=== PATIENT | female | born 1955 | race Caucasian/White ===

== ENCOUNTER 2017-12-08 19:26 | Inpatient (IN) ==
[2017-12-09 02:52] LABS: Troponin I 0.08 ng/mL (0.02-0.05)
[2017-12-09 03:05] LABS: CKMB Percent 1.7 % (0.0-4.0); Creatine Kinase MB 3.7 ng/mL (0.5-3.6)
--- NOTE | 2017-12-09 03:15 | P.HPIM ---
History of Present Illness Primary Care Physician: UNKNOWN History of Present Illness: 62-year-old female with history of newly diagnosed hypertension, hypothyroid, GERD and asthma presented to the ED with complaints of epigastric pain. Patient states the pain is a sharp, intermittent pain in the epigastric region that radiates to her back with no associated symptoms. On arrival she was found to have hypertension and states she was just diagnosed 3 months ago and they are trying to find the correct regimen. She was also placed on Prilosec outpatient for the last 2 months and states it started to help in the beginning but does not help anymore. She denies any shortness of breath, fever or chills. Inpatient Certification: I certify that the inpatient services were ordered in accordance with Medicare regulations governing the order. This includes certification that hospital inpatient services are reasonable and necessary and in the case of services not specified as inpatient-only under 42 CFR 419.22(n), that they are appropriately provided as inpatient services in accordance to with the 2-midnight benchmark under 43 CFR 412.3(e) Estimated Total Length of Stay (Days): 2 Plans for Post Hospital Care: Home Review of Systems All other systems reviewed negative except as stated in HPI PMFSH - History History Provided By: Patient - Medical History Medical History: Medical History (Last Updated 12/09/17 @ 03:01 by MICHELLE Le) Anemia Asthma Hypertension Hypothyroid - Surgical History Surgical History: Surgical History (Last Updated 12/09/17 @ 03:01 by MICHELLE Le) H/O: hysterectomy Hx of appendectomy Hx of cholecystectomy - Family History Family History: Family History (Last Updated 12/09/17 @ 03:02 by MICHELLE Le) Mother Ovarian cancer - Tobacco History Second Hand Smoke Exposure: Yes Tobacco Use In Past 30 Days: Yes Smoking Status: Current every day smoker Tobacco Type: Cigarettes - Alcohol History How Often Do You Have a Drink Containing Alcohol: Never - Substance Use History Substance History: No History of Abuse Medications and Allergies Active Medications: Active Medications Heparin Sodium/Dextrose (Heparin/D5w 25,000 U/250 Ml) 25,000 unit in 250 mls @ 10 mls/hr IV.CONT TITRATE PRN; Protocol PRN Reason: Per Protocol Ondansetron HCl (Zofran Inj) 4 mg IV.PUSH Q6H PRN PRN Reason: NAUSEA OR VOMITING Allergies Allergy/AdvReac Type Severity Reaction Status Date / Time ibuprofen Allergy Severe Anaphylaxis Verified 12/08/17 20:02 Home Medications Medication Instructions Recorded Confirmed Type ferrous sulfate [iron] 325 mg PO DAILY 12/08/17 12/09/17 History levothyroxine [Synthroid] 25 mcg PO DAILY 12/08/17 12/09/17 History lisinopril 20 mg PO DAILY 12/08/17 12/09/17 History montelukast [Singulair] 10 mg PO QPM 12/08/17 12/09/17 History omeprazole magnesium [Prilosec OTC] 20 mg PO DAILY 12/08/17 12/09/17 History umeclidinium-vilanterol [Anoro 1 inh INHALATION Q24H 12/08/17 12/09/17 History Ellipta] Exam Vital signs: Intake & Output 12/08/17 12/08/17 12/09/17 06:59 18:59 06:59 Weight 103.8 kg Other: Weight On Admission 103.8 kg Narrative: GENERAL: This is a well-nourished, well-developed patient, in no apparent distress. SKIN: Warm, dry, intact, no ecchymosis or open lesions EYES: Pupils equal round and reactive, no scleral edema or drainage CARDIOVASCULAR: Regular rate and rhythm without murmurs, gallops, or rubs. RESPIRATORY: Clear to auscultation. Breath sounds equal bilaterally. No wheezes , rales, or rhonchi. GASTROINTESTINAL: Abdomen soft, epigastric tenderness nondistended. Normal active bowel sounds MUSCULOSKELETAL: Extremities without clubbing, cyanosis, or edema. NEURO: Alert & Oriented x4 to person, place, time, situation. Moves all ext x4 Results - Labs CBC & Chem 7: 12/09/17 14:15 Labs: Cardiac Enzymes 12/09/17 Range/Units 02:29 Total Creatine Kinase 219 H (26-192) U/L Troponin I 0.08 H (0.02-0.05) ng/mL Caprini VTE Risk Assessment Caprini VTE Risk Assessment: Moderate/High Risk (score >= 2) Caprini Risk Assessment Model: Point Value = 1 Point Value = 2 Point Value = 3 Point Value = 5 Age 41-60 Minor surgery BMI > 25 kg/m2 Swollen legs Varicose veins or History of unexplained or recurrent spontaneous Oral contraceptives or hormone replacement Sepsis (< 1 month) Serious lung disease, including pneumonia (< 1 month) Abnormal pulmonary function Acute myocardial infarction Congestive heart failure (< 1 month) History of inflammatory bowel disease Medical patient at bed rest Age 61-74 Arthroscopic surgery Major open surgery (> 45 min) Laparoscopic surgery (> 45 min) Malignancy Confined to bed (> 72 hours) Immobilizing plaster cast Central venous access Age >= 75 History of VTE Family history of VTE Factor V Leiden Prothrombin [id number] Lupus anticoagulant Anticardiolipin antibodies Elevated serum homocysteine Heparin-induced thrombocytopenia Other congenital or acquired thrombophilia Stroke (< 1 month) Elective arthroplasty Hip, pelvis, or leg fracture Acute spinal cord injury (< 1 month) Prophylaxis Regimen: Total Risk Factor Score Risk Level Prophylaxis Regimen 0-1 Low Early ambulation 2 Moderate Order ONE of the following: *Sequential Compression Device (SCD) *Heparin 5000 units SQ BID 3-4 Higher Order ONE of the following medications: *Heparin 5000 units SQ TID *Enoxaparin/Lovenox 40 mg SQ daily (WT < 150 kg, CrCl > 30 mL/min) *Enoxaparin/Lovenox 30 mg SQ daily (WT < 150 kg, CrCl > 10-29 mL/min) *Enoxaparin/Lovenox 30 mg SQ BID (WT < 150 kg, CrCl > 30 mL/min) AND/OR *Sequential Compression Device (SCD) 5 or more Highest Order ONE of the following medications: *Heparin 5000 units SQ TID (Preferred with Epidurals) *Enoxaparin/Lovenox 40 mg SQ daily (WT < 150 kg, CrCl > 30 mL/min) *Enoxaparin/Lovenox 30 mg SQ daily (WT < 150 kg, CrCl > 10-29 mL/min) *Enoxaparin/Lovenox 30 mg SQ BID (WT < 150 kg, CrCl > 30 mL/min) AND *Sequential Compression Device (SCD) Assessment and Plan - Plan Elevated troponin, likely due to elevated BP, rule out ACS EKG reviewed and shows sinus rhythm with no ST elevation Troponin 0.08 -Serial troponin and EKGs -Heparin IV -Insult cardiology for evaluation -Lipid profile Epigastric pain, likely a gastric ulcer -Protonix IV -Consult GI for evaluation -Tobacco use counseling Hypertensive urgency -Resume home medications lisinopril, will adjust as needed -Clonidine as needed, if no improvement will start Cardene -Monitor vitals Hypothyroid, chronic -Resume home medications DVT prophylaxis: Heparin Discussed Condition With: Patient and RN H&P: Quality - VTE Deep Vein Thrombosis/Pulmonary Embolism Present on Admission: No
[2017-12-09] MEDS: Pantoprazole Inj 40 MG Vial IV.PUSH SCH ×2 (03:28→18:00)
[2017-12-09 04:26] LABS: Prothrombin Time 10.3 sec (9.8-11.6)
[2017-12-09] MEDS: Lisinopril 20 MG Tablet PO SCH (08:03)
[2017-12-09] MEDS: Ferrous Sulfate 325 MG Tablet PO SCH (08:03)
[2017-12-09 08:24] LABS: Chol/HDL Ratio 2.8 Ratio; HDL Cholesterol 67.1 mg/dL (40.0-60.0)
[2017-12-09 08:25] LABS: Troponin I 0.08 ng/mL (0.02-0.05)
[2017-12-09 08:37] LABS: CKMB Percent 1.8 % (0.0-4.0); Creatine Kinase MB 3.6 ng/mL (0.5-3.6)
[2017-12-09] MEDS: Heparin Drip 25,000 UNIT/250 ML BAG IV.CONT PRN ×2 (09:11→18:59)
[2017-12-09] MEDS ORDERED: MethylPREDNISolone Sod Succinate Inj 125 MG/2 ML Vial IV.PUSH ONE (10:30)
--- NOTE | 2017-12-09 11:34 | P.PN ---
Subjective Interval history: Follow-up non-ST elevation MN/hypertensive urgency December 09, 2017-denies any abdominal pain. Currently denies any chest pain or shortness of breath. Physical Exam Vital signs: Vital Signs 12/09/17 02:43 12/09/17 03:00 12/09/17 03:59 Temperature 98.8 F Pulse Rate 64 56 L 61 Respiratory Rate 16 Blood Pressure 172/95 H Pulse Oximetry 98 12/09/17 04:00 12/09/17 05:00 12/09/17 06:00 Temperature Pulse Rate 60 60 60 Respiratory Rate Blood Pressure Pulse Oximetry 12/09/17 06:30 12/09/17 07:00 12/09/17 08:00 Temperature 97.4 F L Pulse Rate 77 64 Respiratory Rate 18 Blood Pressure 131/72 141/96 H Pulse Oximetry 98 Intake & Output 12/08/17 12/09/17 12/09/17 18:59 06:59 18:59 Output Total 300 / 300 Balance -300 / -300 Weight 103.7 kg Output: Urine 300 / 300 Other: Date of Last Bowel Movement 12/08/17 # Bowel Movements 0 Weight On Admission 103.8 kg Narrative: GENERAL: NAD SKIN: Warm and dry. HEAD: Normocephalic. EYES: No scleral icterus. No injection or drainage. NECK: Supple, trachea midline. No JVD or lymphadenopathy. CARDIOVASCULAR: Regular rate and rhythm without murmurs, gallops, or rubs. RESPIRATORY: Breath sounds equal bilaterally. No accessory muscle use. GASTROINTESTINAL: Abdomen soft, non-tender, nondistended. MUSCULOSKELETAL: No cyanosis, or edema. BACK: Nontender without obvious deformity. No CVA tenderness. Results - Labs Laboratory Results - last 24 hr 12/09/17 12/09/17 12/09/17 02:29 03:56 07:40 PT 10.3 INR 1.0 APTT Total Creatine Kinase 219 H 200 H CK-MB (CK-2) 3.7 H 3.6 CK-MB (CK-2) % 1.7 1.8 Troponin I 0.08 H 0.08 H Triglycerides Cholesterol LDL Cholesterol, Calc HDL Cholesterol Cholesterol/HDL Ratio 12/09/17 12/09/17 07:40 07:40 PT INR APTT 35.3 H Total Creatine Kinase CK-MB (CK-2) CK-MB (CK-2) % Troponin I Triglycerides 124 Cholesterol 188 LDL Cholesterol, Calc 96 HDL Cholesterol 67.1 H Cholesterol/HDL Ratio 2.80 Assessment and Plan - Plan 62-year-old female with Non-ST elevation MN Currently on heparin drip pending evaluation from cardiology for possible left heart catheterization However elevated troponin could have been secondary to hypertensive urgency 2D echo pending, and monitor lipid profile Hypertensive urgency Resolved Continue home medications Epigastric pain Improving Hypothyroid, chronic Continue home medications DVT prophylaxis: Heparin
[2017-12-09] MEDS: Umeclindinium 62.5 MCG/Vilanterol 25 MCG Inhaler INH SCH (13:18)
[2017-12-09 14:24] LABS: Hematocrit 35.6 % (35.0-46.0); Hemoglobin 11.6 gm/dL (11.6-15.3); Mean Corpuscular HGB Conc 32.5 % (32.0-36.0); Mean Corpuscular Hemoglobin 26.1 pg (27.0-34.0); Mean Corpuscular Volume 80.4 fL (80.0-100.0); Platelet Count 231 th/mm3 (150-450); Red Blood Count 4.43 mil/mm3 (4.00-5.30); Red Cell Distribution Width 19.2 % (11.6-17.2); White Blood Count 8.1 th/mm3 (4.0-11.0)
[2017-12-09 14:44] LABS: Albumin 3.5 g/dL (3.4-5.0)
--- NOTE | 2017-12-09 15:19 | ECG ---
Date Performed: 12/09/2017 Time Performed: 02:33:16 PTAGE: 62 years EKG: Sinus rhythm Anterolateral ST-T changes may be due to myocardial ischemia Abnormal ECG Since PREVIOUS TRACING , no significant change noted PREVIOUS TRACIN12/08/2017 20.30.22 DOCTOR: Skip Cespedes Interpretating Date/Time 12/09/2017 15:17:53
--- NOTE | 2017-12-09 15:30 | MB ---
cc: Steve Spencer MD DATE: 12/09/2017 HISTORY OF PRESENT ILLNESS: This is a very pleasant 62-year-old lady with history of asthma, anemia, hypothyroidism, hypertension and tobacco use. She developed chest pressure yesterday radiating infrascapularly, currently pain free. Otherwise, denies any fevers, chills, cough, GI or bleeding, PND, orthopnea or dizziness. PAST MEDICAL HISTORY: As per history of present illness. She is status post hysterectomy, status post appendectomy, status post cholecystectomy. ALLERGIES: IBUPROFEN. POSSIBLE CONTRAST DYE. SOCIAL HISTORY: She smokes. Denies alcohol use. MEDICATIONS: In the hospital: 1. Ferrous sulfate 325 daily. 2. IV Heparin. 3. Lisinopril 20 mg daily. 4. Levothyroxine 25 mcg daily. 5. Methylprednisolone 60 mg IV x. 6. Singulair. 7. Pantoprazole 40 mg IV push. 8. Umeclidinium and Vilanterol. PHYSICAL EXAMINATION: VITAL SIGNS: Pulse 60, blood pressure 141/96, respiratory rate 18, temperature 97.4. GENERAL: She is alert and oriented x3, in no acute distress. NECK: Supple. No JVD. No bruit. CARDIOVASCULAR: S1, S2. No murmurs, rubs or gallops. LUNGS: Clear to auscultation bilaterally. ABDOMEN: Soft, nontender, nondistended with positive bowel sounds. EXTREMITIES: No lower extremity edema. LABORATORY DATA: EKG shows normal sinus rhythm with asymmetric T-wave inversion in V3, V4, V5, V6. Chest x-ray is not done. LABORATORY DATA: INR 1.0. White count 10.3, hemoglobin 12.0, hematocrit 36.9, platelet count 260. INR is 1.0. Sodium 141, potassium 3.8, chloride 106, bicarbonate 26.0, BUN 19, creatinine 1.0. LFTs normal. Troponin is 0.08. LDL 96. DIAGNOSES: 1. [id number] myocardial infarction. 2. Tobacco abuse. 3. Asthma. 4. Hypertension. DISCUSSION: Recommend left heart catheterization medically necessary due to [id number] myocardial infarction, multiple cardiac risk factors, elevated troponin, EKG suggestive of anterolateral ischemia, multiple cardiac risk factors. I have strongly advised the patient to stop smoking. We will start aspirin 162 mg daily. Continue heparin. Beta blockers were held due to reactive airway disease. Continue lisinopril for left heart catheterization on 12/10/2017. Explained to the patient that the risks of catheterization, PCI is 5-10% chance of , stroke, heart attack, bleeding, infection, need for bypass surgery, surgery, dialysis, blood transfusion, bleeding, infection, anaphylaxis and arrhythmia. I will dose the patient with 60 mg of IV Solu-Medrol now and at 7 a.m. 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 I discussed this in detail with the patient and the nurse at the bedside. The patient understands and consents to proceed with the procedure. MD VINEET Louis/su , 11:56 AM , 12:03 PM
--- NOTE | 2017-12-09 16:56 | MB ---
cc: Vu Ahumada MD DATE: 12/09/2017 REASON FOR CONSULTATION: Epigastric pain. HISTORY OF PRESENT ILLNESS: This is a 62-year-old female patient who is currently in the hospital with symptoms of coronary artery disease with high troponin level. She was recently diagnosed with hypertension, hypothyroid, gastroesophageal reflux disease and asthma. She did complain of epigastric pain over the last 3 months. The pain was described as sharp and intermittent, mostly in the epigastric area, radiating to her back and no other associated symptoms like nausea, vomiting, dysphagia, heartburn or change in bowel habits. The patient denies any change in weight or appetite. When she was seen in the emergency room, she was hypertensive and her troponins showed evidence of myocardial event. The patient had previously seen her physician for this epigastric pain and was given Prilosec for treatment. The patient did improve slightly, then it came back over the last 3 months. The patient never had any endoscopic evaluation including upper endoscopy for her epigastric pain and heartburn. She never had a colonoscopy, but she was told clinically that she has recurrent diverticulitis. The patient refusing any endoscopic evaluation including upper endoscopy or lower endoscopy. REVIEW OF SYSTEMS: All 14 points element review of systems negative. PAST MEDICAL HISTORY: Hypertension, hypothyroid, gastroesophageal reflux disease, bronchial asthma. PAST SURGICAL HISTORY: Hysterectomy, appendectomy, cholecystectomy. FAMILY HISTORY: Ovarian CA. PSYCHOSOCIAL HISTORY: The patient is a smoker. No alcohol use or abuse. No IV drug abuse. MEDICATIONS: Currently on: 1. Zofran. 2. Heparin. ALLERGIES: IBUPROFEN. PHYSICAL EXAMINATION: GENERAL: The patient appeared to be comfortable, not in distress or in pain, good hydration status and nutritional status. Overweight. VITAL SIGNS: Essentially unremarkable within normal limits. HEAD AND NECK: Normocephalic, atraumatic. Pupils equal and reactive to light. NECK: Supple. CARDIOVASCULAR: No lymphadenopathy. No thyromegaly. CHEST: Clear to auscultation bilaterally. No crackles or wheezes. CARDIOVASCULAR: Regular rate and rhythm. No murmurs. ABDOMEN: Soft, nontender. No hepatosplenomegaly. No palpable masses. EXTREMITIES: Normal pulses. No edema. ABDOMEN: Soft, minimal tenderness in the epigastric area, but no rebound tenderness. No rigidity. No hepatosplenomegaly and no masses. EXTREMITIES: Normal pulses. No edema. NEUROLOGIC: Nonfocal. Cranial nerves 2-12 grossly intact. No motor or sensory deficit. SKIN: No rashes and appeared to be intact. ASSESSMENT: This is a 62-year-old female patient who is being admitted and evaluated for acute coronary event, found to have epigastric pain of 3 months' duration, partially improved on Prilosec. The patient refusing any endoscopic evaluation and never had a colonoscopy and refusing to have a colonoscopy as well. GI consulted for further evaluation. PLAN: This patient is refusing endoscopic evaluation, EGD or colonoscopy. We will check her CBC and Hemoccult testing and H. pylori stool antigen to rule out infection. We will continue PPI, to consider doubling the dose. Check right upper quadrant abdominal ultrasound to rule out biliary problems contributing to her pain. We will follow with you. Further recommendations to follow. Thank you for the consult. MD SUSAN Reynolds/rory , 12:34 PM , 12:43 PM
[2017-12-09] MEDS: Montelukast 10 MG Tablet PO SCH (18:00)
--- NOTE | 2017-12-09 18:08 | US ---
EXAM DATE: 12/09/2017 6:03 PM EDT AGE/SEX: 62 years / Female INDICATIONS: Abdominal pain. CLINICAL DATA: This is the patient's initial encounter. Patient reports that signs and symptoms have been present for 3 months and indicates a pain score of 2/10. MEDICAL/SURGICAL HISTORY: Anemia. Asthma. Hypertension. Hypothyroid. Cholecystectomy. Appe ndectomy. Hysterectomy. COMPARISON: No prior exams available for comparison. MEASUREMENTS: Liver:__ 22.9 cm. Common Bile Duct:__ 4mm. Right Kidney:__ 12.0 x 4.5 x 5.0 cm. FINDINGS: Liver: Increased echotexture without focal lesion or ductal dilation. Portal Vein: Hepatopedal flow seen in portal vein. Common Duct: No intraluminal mass or stone visualized. Gallbladder: Surgically absent. Pancreas: The visualized portions are within normal limits Right Kidney: Increased echotexture. No mass or hydronephrosis. Other: None. CONCLUSION: The liver is slightly echogenic which may be due to fatty infiltration and or hepatocellular dysfu nction. Electronically signed by: Josué Santa MD 12/09/2017 6:06 PM EDT
[2017-12-10] MEDS: Pantoprazole Inj 40 MG Vial IV.PUSH SCH (03:55)
[2017-12-10 04:17] LABS: Baso % (Auto) 0.5 % (0.0-2.0); Eos % (Auto) 0.3 % (0.0-4.0); Hematocrit 33.4 % (35.0-46.0); Hemoglobin 11.1 gm/dL (11.6-15.3); Lymph # (Auto) 1.5 th/mm3 (1.0-4.8); Lymph % (Auto) 20.2 % (9.0-44.0); Mean Corpuscular HGB Conc 33.2 % (32.0-36.0); Mean Corpuscular Hemoglobin 26.3 pg (27.0-34.0); Mean Corpuscular Volume 79.4 fL (80.0-100.0); Mean Platelet Volume 8.1 fL (7.0-11.0); Mono # (Auto) 0.4 th/mm3 (0.0-0.9); Mono % (Auto) 5.7 % (0.0-8.0); Neut # (Auto) 5.4 th/mm3 (1.8-7.7); Neut % (Auto) 73.3 % (16.0-70.0); Platelet Count 228 th/mm3 (150-450); Red Cell Distribution Width 19.6 % (11.6-17.2); White Blood Count 7.4 th/mm3 (4.0-11.0)
[2017-12-10 04:39] LABS: Calcium 8.2 mg/dL (8.5-10.1); Carbon Dioxide 28.5 meq/L (21.0-32.0); Potassium 3.7 meq/L (3.5-5.1)
[2017-12-10] MEDS: Umeclindinium 62.5 MCG/Vilanterol 25 MCG Inhaler INH SCH ×2 (06:30→08:17)
[2017-12-10] MEDS: Lisinopril 20 MG Tablet PO SCH ×2 (06:47→08:18)
[2017-12-10] MEDS: Ferrous Sulfate 325 MG Tablet PO SCH ×2 (06:47→08:17)
[2017-12-10] MEDS ORDERED: MethylPREDNISolone Sod Succinate Inj 125 MG/2 ML Vial IV.PUSH SCH (07:00)
[2017-12-10] MEDS ORDERED: Heparin/NS PF Inj 1,000 ML ONE (08:41)
[2017-12-10] MEDS ORDERED: Heparin 10,000 UNITS/10 ML Vial (for IV use) ONE (08:42)
[2017-12-10] MEDS ORDERED: fentaNYL Citrate Inj 100 MCG/2 ML Ampul ONE (08:42)
[2017-12-10] MEDS ORDERED: Famotidine PF Inj 20 MG/2 ML Vial ONE (08:53)
[2017-12-10] MEDS ORDERED: Labetalol HCl Inj 100 MG/20 ML Vial ONE (09:28)
--- NOTE | 2017-12-10 10:19 | MR ---
cc: Steve Spencer MD DATE: 12/10/2017 TITLE OF PROCEDURE: Left heart catheterization, left ventricular coronary angiography. INDICATIONS FOR PROCEDURE: Non-STEMI, coronary artery disease, hypertension, tobacco use, multiple cardiac risk factors. The patient was brought to the cardiac catheterization laboratory, prepped and draped in the usual sterile fashion. 10 mL of 1% lidocaine was used for local anesthetic. Right common femoral artery: A 4-Vietnamese sheath was placed in right common femoral artery. 4-Vietnamese JR4 and JL4 catheters used for left and right coronary angiography with the following findings: LV pressure was 210/12-16, EF 50%. The left ventricle appears to be upper limit of normal to mildly dilated fluoroscopically. Right coronary artery is dominant. There is mild disease in the proximal segment, up to 10% to 20% angiographically. The RV branch extends out to the apex. It appears to have at least mild to moderate diffuse disease in the mid to distal segment up to 50% angiographically. No focal stenosis, however. ANGIOGRAPHIC DATA: The left main coronary artery is a large vessel, 5-6 mm in diameter for a reference vessel diameter, distal tapering to about 20%. Left circumflex has mild disease in the mid AV groove, up to 10% angiographically. The first obtuse marginal vessel is a very small vessel, 0.5 mm, comes off the proximal left circumflex, has no significant disease angiographically. Second obtuse marginal vessel is a medium size vessel, reference vessel diameter 2.5 mm. No significant disease angiographically. The left circumflex vessel tapers, extends into a large distal posterolateral artery approaching the apex, 3.0 mm reference vessel diameter with no significant disease angiographically. The LAD is transapical. There is mild ostial disease up to 20% angiographically. First diagonal artery has an ostial 50 to perhaps 60% stenosis. However, I only see it in the AP cranial 36 degree angulation view. It is a medium size vessel, reference vessel diameter 2.5 mm. Second diagonal artery is a medium size vessel, 2.5 mm. No significant disease angiographically. CONCLUSION: 1. Angiographically mild to moderate 3-vessel coronary artery disease in a right dominant system as detailed above. 2. Low end normal left ventricular systolic function with upper limits of normal to mild dilatation of the left ventricle fluoroscopically, ejection fraction 50%. 3. Recommend medical management of coronary artery disease and hypertension. 4. I have strongly advised the patient to stop smoking multiple times. MD VINEET Louis/torri/goldie , 09:34 AM , 09:40 AM
--- NOTE | 2017-12-10 11:05 | P.PN ---
Subjective Interval history: Follow-up non-ST elevation [place] December 10, 2017-patient seen and examined, she underwent a clean left heart catheterization today. Patient is stable. Physical Exam Vital signs: Vital Signs 12/09/17 11:00 12/09/17 12:00 12/09/17 13:00 Temperature 98.1 F Pulse Rate 64 52 L 70 Respiratory Rate 18 Blood Pressure 177/93 H Pulse Oximetry 99 12/09/17 14:00 12/09/17 15:00 12/09/17 16:00 Temperature 99.2 F Pulse Rate 60 63 68 Respiratory Rate 21 Blood Pressure 154/90 H Pulse Oximetry 97 12/09/17 17:00 12/09/17 18:00 12/09/17 19:00 Temperature Pulse Rate 66 62 65 Respiratory Rate Blood Pressure Pulse Oximetry 12/09/17 20:00 12/09/17 21:00 12/09/17 22:00 Temperature 97 F L Pulse Rate 66 62 60 Respiratory Rate 16 Blood Pressure 162/95 H Pulse Oximetry 97 12/09/17 23:00 12/10/17 00:00 12/10/17 01:00 Temperature Pulse Rate 56 L 56 L 56 L Respiratory Rate 16 Blood Pressure 170/93 H Pulse Oximetry 95 12/10/17 02:00 12/10/17 03:00 12/10/17 04:00 Temperature Pulse Rate 52 L 61 60 Respiratory Rate 16 Blood Pressure 151/80 H Pulse Oximetry 97 12/10/17 05:00 12/10/17 06:00 12/10/17 07:00 Temperature Pulse Rate 48 L 60 56 L Respiratory Rate Blood Pressure Pulse Oximetry 12/10/17 08:00 12/10/17 10:00 Temperature 98.1 F Pulse Rate 56 L 51 L Respiratory Rate 18 Blood Pressure 177/95 H Pulse Oximetry 95 Intake & Output 12/09/17 12/10/17 12/10/17 18:59 06:59 18:59 Intake Total 1210 / 1210 240 / 240 160 / 160 Output Total 850 / 850 700 / 700 Balance 360 / 360 -460 / -460 160 / 160 Weight 103.7 kg Intake: IV 250 / 250 160 / 160 Heparin/D5W 25,000 U/250 mL 25, 250 / 250 160 / 160 000 unit In 250 ml @ Per Protocol 10 mls/hr IV.CONT TITRATE PRN Rx#:[id number] Oral 960 / 960 240 / 240 Output: Urine 850 / 850 700 / 700 Other: Date of Last Bowel Movement 12/08/17 # Bowel Movements 0 Narrative: GENERAL: NAD SKIN: Warm and dry. HEAD: Normocephalic. EYES: No scleral icterus. No injection or drainage. NECK: Supple, trachea midline. No JVD or lymphadenopathy. CARDIOVASCULAR: Regular rate and rhythm without murmurs, gallops, or rubs. RESPIRATORY: Breath sounds equal bilaterally. No accessory muscle use. GASTROINTESTINAL: Abdomen soft, non-tender, nondistended. MUSCULOSKELETAL: No cyanosis, or edema. BACK: Nontender without obvious deformity. No CVA tenderness. Results - Labs CBC & Chem 7: 12/10/17 03:42 12/10/17 03:42 Laboratory Results - last 24 hr 12/09/17 12/09/17 12/09/17 14:15 14:15 14:15 WBC 8.1 RBC 4.43 Hgb 11.6 Hct 35.6 MCV 80.4 MCH 26.1 L MCHC 32.5 RDW 19.2 H Plt Count 231 MPV 8.0 Neut % (Auto) Lymph % (Auto) [place] % (Auto) Eos % (Auto) Baso % (Auto) Neut # (Auto) Lymph # (Auto) [place] # (Auto) Eos # (Auto) Baso # (Auto) WBC Differential Differential Comment APTT 42.9 H D Sodium Potassium Chloride Carbon Dioxide Anion Gap BUN Creatinine Estimated GFR Random Glucose Calcium Total Bilirubin 0.4 Direct Bilirubin 0.1 Indirect Bilirubin 0.3 AST 11 L ALT 23 Alkaline Phosphatase 79 Total Protein 7.0 Albumin 3.5 12/09/17 12/10/17 12/10/17 20:40 03:42 03:42 WBC 7.4 RBC 4.20 Hgb 11.1 L Hct 33.4 L MCV 79.4 L MCH 26.3 L MCHC 33.2 RDW 19.6 H Plt Count 228 MPV 8.1 Neut % (Auto) 73.3 H Lymph % (Auto) 20.2 [place] % (Auto) 5.7 Eos % (Auto) 0.3 Baso % (Auto) 0.5 Neut # (Auto) 5.4 Lymph # (Auto) 1.5 [place] # (Auto) 0.4 Eos # (Auto) 0.0 Baso # (Auto) 0.0 WBC Differential . Differential Comment Auto diff final APTT 46.8 H Sodium 140 Potassium 3.7 Chloride 105 Carbon Dioxide 28.5 Anion Gap 7 BUN 17 Creatinine 0.91 Estimated GFR 63 L Random Glucose 96 Calcium 8.2 L Total Bilirubin Direct Bilirubin Indirect Bilirubin AST ALT Alkaline Phosphatase Total Protein Albumin 12/10/17 04:10 WBC RBC Hgb Hct MCV MCH MCHC RDW Plt Count MPV Neut % (Auto) Lymph % (Auto) [place] % (Auto) Eos % (Auto) Baso % (Auto) Neut # (Auto) Lymph # (Auto) [place] # (Auto) Eos # (Auto) Baso # (Auto) WBC Differential Differential Comment APTT 45.5 H Sodium Potassium Chloride Carbon Dioxide Anion Gap BUN Creatinine Estimated GFR Random Glucose Calcium Total Bilirubin Direct Bilirubin Indirect Bilirubin AST ALT Alkaline Phosphatase Total Protein Albumin - Imaging Impressions Liver Ultrasound 12/09/17 00:00 CONCLUSION: The liver is slightly echogenic which may be due to fatty infiltration and or hepatocellular dysfunction. - Procedures Clean left heart catheterization December 10, 2017 Assessment and Plan - Plan 62-year-old female with Non-ST elevation [place] Status post clean left heart catheterization December 10, 2017 Off heparin drip, continue with Coreg 3.125 mg twice daily, lisinopril, aspirin Appreciate input from cardiology 2D echo pending Hypertensive urgency Resolved Benign labile hypertension Currently on Aldactone 25 mg twice daily, Coreg, lisinopril, Norvasc 5 mg daily Epigastric pain Improving Patient was seen by GI, however refused endoscopy, colonoscopy evaluation Hypothyroid, chronic Continue home medications DVT prophylaxis: Heparin d/veto
--- NOTE | 2017-12-10 15:33 | P.PNGI ---
Subjective Interval history: Currently patient is sitting on side of the bed alert oriented Denies any nausea or vomiting but does note symptoms of reflux and some upper abdominal pain, gastric area Post cardiac cath today AYAH globin stable at 11.1. <Jordana Pinto - Last Filed: 12/10/17 15:33> Physical Exam Vital signs: Vital Signs 12/09/17 16:00 12/09/17 17:00 12/09/17 18:00 Temperature 99.2 F Pulse Rate 68 66 62 Respiratory Rate 21 Blood Pressure 154/90 H Pulse Oximetry 97 12/09/17 19:00 12/09/17 20:00 12/09/17 21:00 Temperature 97 F L Pulse Rate 65 66 62 Respiratory Rate 16 Blood Pressure 162/95 H Pulse Oximetry 97 12/09/17 22:00 12/09/17 23:00 12/10/17 00:00 Temperature Pulse Rate 60 56 L 56 L Respiratory Rate 16 Blood Pressure 170/93 H Pulse Oximetry 95 12/10/17 01:00 12/10/17 02:00 12/10/17 03:00 Temperature Pulse Rate 56 L 52 L 61 Respiratory Rate Blood Pressure Pulse Oximetry 12/10/17 04:00 12/10/17 05:00 12/10/17 06:00 Temperature Pulse Rate 60 48 L 60 Respiratory Rate 16 Blood Pressure 151/80 H Pulse Oximetry 97 12/10/17 07:00 12/10/17 08:00 12/10/17 10:00 Temperature 98.1 F Pulse Rate 56 L 56 L 51 L Respiratory Rate 18 Blood Pressure 177/95 H Pulse Oximetry 95 12/10/17 11:00 12/10/17 12:00 12/10/17 13:00 Temperature 98.0 F Pulse Rate 48 L 53 L 64 Respiratory Rate 18 Blood Pressure 152/80 H Pulse Oximetry 93 L 12/10/17 14:00 12/10/17 15:00 Temperature Pulse Rate 65 65 Respiratory Rate Blood Pressure Pulse Oximetry Intake & Output 12/09/17 12/10/17 12/10/17 18:59 06:59 18:59 Intake Total 1210 / 1210 240 / 240 160 / 160 Output Total 850 / 850 700 / 700 Balance 360 / 360 -460 / -460 160 / 160 Weight 103.7 kg Intake: IV 250 / 250 160 / 160 Heparin/D5W 25,000 U/250 mL 25, 250 / 250 160 / 160 000 unit In 250 ml @ Per Protocol 10 mls/hr IV.CONT TITRATE PRN Rx#:[id number] Oral 960 / 960 240 / 240 Output: Urine 850 / 850 700 / 700 Other: Date of Last Bowel Movement 12/08/17 # Bowel Movements 0 - Constitutional morbidly obese - Routine HEENT Exam Head: Present: normocephalic ENT: Present: mucous membranes moist - Routine Cardiovascular Exam Present: S1, S2 - Routine Abdominal Exam Present: soft (Round, obese,taut, upper abdominal pain gastric pain dull, waxes and wanes) <Jordana Pinto - Last Filed: 12/10/17 15:33> Vital signs: Vital Signs 12/10/17 00:00 12/10/17 01:00 12/10/17 02:00 Temperature Pulse Rate 56 L 56 L 52 L Respiratory Rate 16 Blood Pressure 170/93 H Pulse Oximetry 95 12/10/17 03:00 12/10/17 04:00 12/10/17 05:00 Temperature Pulse Rate 61 60 48 L Respiratory Rate 16 Blood Pressure 151/80 H Pulse Oximetry 97 12/10/17 06:00 12/10/17 07:00 12/10/17 08:00 Temperature 98.1 F Pulse Rate 60 56 L 56 L Respiratory Rate 18 Blood Pressure 177/95 H Pulse Oximetry 95 12/10/17 10:00 12/10/17 11:00 12/10/17 12:00 Temperature 98.0 F Pulse Rate 51 L 48 L 53 L Respiratory Rate 18 Blood Pressure 152/80 H Pulse Oximetry 93 L 12/10/17 13:00 12/10/17 14:00 12/10/17 15:00 Temperature Pulse Rate 64 65 65 Respiratory Rate Blood Pressure Pulse Oximetry 12/10/17 16:00 12/10/17 17:00 12/10/17 18:00 Temperature 97.6 F Pulse Rate 65 67 60 Respiratory Rate 18 Blood Pressure 135/77 Pulse Oximetry 98 Intake & Output 12/10/17 12/10/17 12/11/17 06:59 18:59 06:59 Intake Total 240 / 240 640 / 640 Output Total 700 / 700 900 / 900 Balance -460 / -460 -260 / -260 Weight 103.7 kg Intake: IV 160 / 160 Heparin/D5W 25,000 U/250 mL 25, 160 / 160 000 unit In 250 ml @ Per Protocol 10 mls/hr IV.CONT TITRATE PRN Rx#:[id number] Oral 240 / 240 480 / 480 Output: Urine 700 / 700 900 / 900 Other: Date of Last Bowel Movement 12/08/17 # Bowel Movements 0 <Vu Ahumada - Last Filed: 12/10/17 23:24> Results - Labs CBC & Chem 7: 12/10/17 03:42 12/10/17 03:42 Laboratory Results - last 24 hr 12/09/17 12/10/17 12/10/17 20:40 03:42 03:42 WBC 7.4 RBC 4.20 Hgb 11.1 L Hct 33.4 L MCV 79.4 L MCH 26.3 L MCHC 33.2 RDW 19.6 H Plt Count 228 MPV 8.1 Neut % (Auto) 73.3 H Lymph % (Auto) 20.2 [place] % (Auto) 5.7 Eos % (Auto) 0.3 Baso % (Auto) 0.5 Neut # (Auto) 5.4 Lymph # (Auto) 1.5 [place] # (Auto) 0.4 Eos # (Auto) 0.0 Baso # (Auto) 0.0 WBC Differential . Differential Comment Auto diff final APTT 46.8 H Sodium 140 Potassium 3.7 Chloride 105 Carbon Dioxide 28.5 Anion Gap 7 BUN 17 Creatinine 0.91 Estimated GFR 63 L Random Glucose 96 Calcium 8.2 L 12/10/17 04:10 WBC RBC Hgb Hct MCV MCH MCHC RDW Plt Count MPV Neut % (Auto) Lymph % (Auto) [place] % (Auto) Eos % (Auto) Baso % (Auto) Neut # (Auto) Lymph # (Auto) [place] # (Auto) Eos # (Auto) Baso # (Auto) WBC Differential Differential Comment APTT 45.5 H Sodium Potassium Chloride Carbon Dioxide Anion Gap BUN Creatinine Estimated GFR Random Glucose Calcium - Imaging Impressions Liver Ultrasound 12/09/17 00:00 CONCLUSION: The liver is slightly echogenic which may be due to fatty infiltration and or hepatocellular dysfunction. - Procedures Clean left heart catheterization December 10, 2017 <Jordana Pinto - Last Filed: 09/03/18 15:33> - Labs CBC & Chem 7: 12/10/17 03:42 12/10/17 03:42 Laboratory Results - last 24 hr 12/10/17 12/10/17 12/10/17 03:42 03:42 04:10 WBC 7.4 RBC 4.20 Hgb 11.1 L Hct 33.4 L MCV 79.4 L MCH 26.3 L MCHC 33.2 RDW 19.6 H Plt Count 228 MPV 8.1 Neut % (Auto) 73.3 H Lymph % (Auto) 20.2 [place] % (Auto) 5.7 Eos % (Auto) 0.3 Baso % (Auto) 0.5 Neut # (Auto) 5.4 Lymph # (Auto) 1.5 [place] # (Auto) 0.4 Eos # (Auto) 0.0 Baso # (Auto) 0.0 WBC Differential . Differential Comment Auto diff final APTT 45.5 H Sodium 140 Potassium 3.7 Chloride 105 Carbon Dioxide 28.5 Anion Gap 7 BUN 17 Creatinine 0.91 Estimated GFR 63 L Random Glucose 96 Calcium 8.2 L <Vu Ahumada - Last Filed: 12/10/17 23:24> Assessment and Plan (1) Abdominal pain Status: Acute Code(s): R10.9 - Unspecified abdominal pain (2) Abdominal pain decreased with position change Status: Acute Code(s): R10.9 - Unspecified abdominal pain - Plan History history ASSESSMENT: This is a 62-year-old female patient who is being admitted and evaluated for acute coronary event, found to have epigastric pain of 3 months' duration, partially improved on Prilosec. The patient refusing any endoscopic evaluation and never had a colonoscopy and refusing to have a colonoscopy as well. GI consulted for further evaluation This patient is refusing endoscopic evaluation, EGD or colonoscopy. We will check her CBC and Hemoccult testing and H. pylori stool antigen to rule out infection. We will continue PPI, to consider doubling the dose. Check right upper quadrant abdominal ultrasound to rule out biliary problems contributing to her pain. We will follow with you. Further recommendations to follow. 12/10/2017 patient is status post cardiac cath today which showed some triple- vessel disease. According to the record will be medical management. Patient continues to express some upper abdominal pain possible gastric area and does note a history of reflux disease. Abdominal ultrasound showed slightly echogenic which could be related to fatty infiltration or hepatocellular disease. Currently patient has been placed on Protonix and currently denies any epigastric pain. Patient is also a smoker and discussed supportive care for smoking abstinence. Patient notes previous CT scan done at another facility before transfer here unremarkable. Okay to follow GI on an outpatient basis and further evaluate fatty liver disease versus hepatocellular disease. Patient's plan is to discharge tomorrow. Current hemoglobin 11.7 and stable Plan Diet per attending as tolerated avoid any spicy or greasy foods Reflux precautions which includes slow eating, with hydration, no late night eating Health maintenance regimen Currently patient is okay to follow GI on an outpatient basis especially if her pain continues. Will consider further procedures such as EGD or colonoscopy on an outpatient basis. PPI p.o. twice daily Supportive care Patient was seen per myself and Dr. Ahumada, note was written on his behalf <Jordana Pinto - Last Filed: 12/10/17 15:33> (1) Abdominal pain Status: Acute Code(s): R10.9 - Unspecified abdominal pain (2) Abdominal pain decreased with position change Status: Acute Code(s): R10.9 - Unspecified abdominal pain - Attending Attestation Cath results noted, medical management for now. Will need EGD and Colonoscopy when patient agreeable. Will sign off for now, please notify us if needed. <Vu Ahumada - Last Filed: 12/10/17 23:24>
[2017-12-10] MEDS: Montelukast 10 MG Tablet PO SCH (17:39)
[2017-12-10] MEDS: Spironolactone 25 MG Tablet PO SCH (17:39)
[2017-12-11 01:50] VITALS: RESP 16
--- NOTE | 2017-12-11 05:28 | P.PNCA ---
Subjective Interval history: alert in nad Physical Exam Vital signs: Vital Signs 12/10/17 06:00 12/10/17 07:00 12/10/17 08:00 Temperature 98.1 F Pulse Rate 60 56 L 56 L Respiratory Rate 18 Blood Pressure 177/95 H Pulse Oximetry 95 12/10/17 10:00 12/10/17 11:00 12/10/17 12:00 Temperature 98.0 F Pulse Rate 51 L 48 L 53 L Respiratory Rate 18 Blood Pressure 152/80 H Pulse Oximetry 93 L 12/10/17 13:00 12/10/17 14:00 12/10/17 15:00 Temperature Pulse Rate 64 65 65 Respiratory Rate Blood Pressure Pulse Oximetry 12/10/17 16:00 12/10/17 17:00 12/10/17 18:00 Temperature 97.6 F Pulse Rate 65 67 60 Respiratory Rate 18 Blood Pressure 135/77 Pulse Oximetry 98 12/10/17 19:00 12/10/17 20:00 12/10/17 21:00 Temperature 98.5 F Pulse Rate 70 56 L 64 Respiratory Rate 16 Blood Pressure 148/88 H Pulse Oximetry 94 L 12/10/17 22:00 12/10/17 23:00 12/11/17 00:00 Temperature 98.4 F Pulse Rate 52 L 60 53 L Respiratory Rate 16 Blood Pressure 161/78 H Pulse Oximetry 97 12/11/17 01:00 12/11/17 02:00 12/11/17 03:00 Temperature Pulse Rate 54 L 50 L 56 L Respiratory Rate Blood Pressure Pulse Oximetry 12/11/17 04:00 12/11/17 05:00 Temperature 97.9 F Pulse Rate 56 L 58 L Respiratory Rate 16 Blood Pressure 148/82 H Pulse Oximetry 95 Intake & Output 12/10/17 12/10/17 12/11/17 06:59 18:59 06:59 Intake Total 240 / 240 640 / 640 240 / 240 Output Total 700 / 700 900 / 900 1300 / 1300 Balance -460 / -460 -260 / -260 -1060 / -1060 Weight 103.7 kg Intake: IV 160 / 160 Heparin/D5W 25,000 U/250 mL 25, 160 / 160 000 unit In 250 ml @ Per Protocol 10 mls/hr IV.CONT TITRATE PRN Rx#:[id number] Oral 240 / 240 480 / 480 240 / 240 Output: Urine 700 / 700 900 / 900 1300 / 1300 Other: Date of Last Bowel Movement 12/08/17 # Bowel Movements 0 1 Assessment and Plan - Plan 1.) CAD - mild, continue aspirin, start lipitor 20 mg hs; ok to dc from cv standpoint, f/u with me in my office, d/w patient 2.) HTN - improving on current meds
[2017-12-11 05:56] LABS: Hematocrit 33.7 % (35.0-46.0); Mean Corpuscular HGB Conc 32.7 % (32.0-36.0); Mean Corpuscular Hemoglobin 26.1 pg (27.0-34.0); Mean Corpuscular Volume 79.8 fL (80.0-100.0); Mean Platelet Volume 8.3 fL (7.0-11.0); Platelet Count 231 th/mm3 (150-450); Red Blood Count 4.22 mil/mm3 (4.00-5.30); Red Cell Distribution Width 19.6 % (11.6-17.2); White Blood Count 8.8 th/mm3 (4.0-11.0)
[2017-12-11] MEDS: Lisinopril 20 MG Tablet PO SCH (08:21)
[2017-12-11] MEDS: Umeclindinium 62.5 MCG/Vilanterol 25 MCG Inhaler INH SCH (08:21)
[2017-12-11] MEDS: Ferrous Sulfate 325 MG Tablet PO SCH (08:21)
[2017-12-11] MEDS: Spironolactone 25 MG Tablet PO SCH (08:26)
[2017-12-11 08:29] VITALS: O2SAT 97
[2017-12-11] MEDS ORDERED: hydroCHLOROthiazide 25 MG Tablet PO SCH (09:00)
[2017-12-11] MEDS ORDERED: amLODIPine 5 MG Tablet PO SCH (09:00)
--- NOTE | 2017-12-11 10:58 | P.PN ---
Subjective Interval history: Follow-up non-ST elevation [place] December 10, 2017-patient seen and examined, she underwent a clean left heart catheterization today. Patient is stable. December 11, 2017-patient seen and examined, she denies any chest pain, shortness of breath, dizziness. Looking forward going home today. BP labile. Physical Exam Vital signs: Vital Signs 12/10/17 11:00 12/10/17 12:00 12/10/17 13:00 Temperature 98.0 F Pulse Rate 48 L 53 L 64 Respiratory Rate 18 Blood Pressure 152/80 H Pulse Oximetry 93 L 12/10/17 14:00 12/10/17 15:00 12/10/17 16:00 Temperature 97.6 F Pulse Rate 65 65 65 Respiratory Rate 18 Blood Pressure 135/77 Pulse Oximetry 98 12/10/17 17:00 12/10/17 18:00 12/10/17 19:00 Temperature Pulse Rate 67 60 70 Respiratory Rate Blood Pressure Pulse Oximetry 12/10/17 20:00 12/10/17 21:00 12/10/17 22:00 Temperature 98.5 F Pulse Rate 56 L 64 52 L Respiratory Rate 16 Blood Pressure 148/88 H Pulse Oximetry 94 L 12/10/17 23:00 12/11/17 00:00 12/11/17 01:00 Temperature 98.4 F Pulse Rate 60 53 L 54 L Respiratory Rate 16 Blood Pressure 161/78 H Pulse Oximetry 97 12/11/17 02:00 12/11/17 03:00 12/11/17 04:00 Temperature 97.9 F Pulse Rate 50 L 56 L 56 L Respiratory Rate 16 Blood Pressure 148/82 H Pulse Oximetry 95 12/11/17 05:00 12/11/17 06:00 12/11/17 07:00 Temperature Pulse Rate 58 L 55 L 56 L Respiratory Rate Blood Pressure Pulse Oximetry 12/11/17 08:00 12/11/17 09:00 12/11/17 10:00 Temperature 97.7 F Pulse Rate 56 L 72 68 Respiratory Rate 16 Blood Pressure 170/91 H Pulse Oximetry 97 Intake & Output 12/10/17 12/11/17 12/11/17 18:59 06:59 18:59 Intake Total 640 / 640 480 / 480 Output Total 900 / 900 1900 / 1900 Balance -260 / -260 -1420 / -1420 Weight 104 kg Intake: IV 160 / 160 Heparin/D5W 25,000 U/250 mL 25, 160 / 160 000 unit In 250 ml @ Per Protocol 10 mls/hr IV.CONT TITRATE PRN Rx#:[id number] Oral 480 / 480 480 / 480 Output: Urine 900 / 900 1900 / 1900 Other: # Bowel Movements 1 Narrative: GENERAL: NAD SKIN: Warm and dry. HEAD: Normocephalic. EYES: No scleral icterus. No injection or drainage. NECK: Supple, trachea midline. No JVD or lymphadenopathy. CARDIOVASCULAR: Regular rate and rhythm without murmurs, gallops, or rubs. RESPIRATORY: Breath sounds equal bilaterally. No accessory muscle use. GASTROINTESTINAL: Abdomen soft, non-tender, nondistended. MUSCULOSKELETAL: No cyanosis, or edema. BACK: Nontender without obvious deformity. No CVA tenderness. Results - Labs CBC & Chem 7: 12/11/17 04:48 12/10/17 03:42 Laboratory Results - last 24 hr 12/11/17 04:48 WBC 8.8 RBC 4.22 Hgb 11.0 L Hct 33.7 L MCV 79.8 L MCH 26.1 L MCHC 32.7 RDW 19.6 H Plt Count 231 MPV 8.3 Microbiology 12/11/17 04:28 Stool Stool Occult Blood (TOM) - Final Hemoccult negative - Procedures Clean left heart catheterization December 10, 2017 Assessment and Plan - Plan 62-year-old female with Non-ST elevation [place] Status post clean left heart catheterization December 10, 2017 Off heparin drip, continue with Coreg 3.125 mg twice daily, lisinopril, aspirin, Lipitor 20 mg daily Appreciate input from cardiology 2D echo pending Hypertensive urgency Resolved Benign labile hypertension Currently on Aldactone 25 mg twice daily, Coreg, lisinopril, Norvasc 5 mg daily Give clonidine 0.2 mg 1 now Epigastric pain Improving Patient was seen by GI, however refused endoscopy, colonoscopy evaluation Hypothyroid, chronic Continue home medications DVT prophylaxis: Heparin d/veto
--- NOTE | 2017-12-11 11:05 | P.DS ---
Date of admission: 12/09/17 02:01 Primary care physician: UNKNOWN Anticipated date of discharge: 12/11/17 Brief History from admission: 62-year-old female with history of newly diagnosed hypertension, hypothyroid, GERD and asthma presented to the ED with complaints of epigastric pain. Patient states the pain is a sharp, intermittent pain in the epigastric region that radiates to her back with no associated symptoms. On arrival she was found to have hypertension and states she was just diagnosed 3 months ago and they are trying to find the correct regimen. She was also placed on Prilosec outpatient for the last 2 months and states it started to help in the beginning but does not help anymore. She denies any shortness of breath, fever or chills. DS: Summary Hospital Course: While in hospital, patient was treated for: Non-ST elevation MT Status post clean left heart catheterization December 10, 2017 Off heparin drip, continue with Coreg 3.125 mg twice daily, lisinopril, aspirin, Lipitor 20 mg daily Appreciate input from cardiology Hypertensive urgency Resolved Benign labile hypertension She was treated with Aldactone 25 mg twice daily, Coreg, lisinopril, Norvasc 5 mg daily Epigastric pain Improving Patient was seen by GI, however refused endoscopy, colonoscopy evaluation Hypothyroid, chronic Continue home medications DVT prophylaxis: Heparin d/veto - Time Spent with Patient Total time spent providing and/or coordinating discharge services: Less than 30 minutes - Quality: VTE Deep Vein Thrombosis/Pulmonary Embolism Present on Admission: No Exam Vital signs: Vital Signs 12/10/17 12:00 12/10/17 13:00 12/10/17 14:00 Temperature 98.0 F Pulse Rate 53 L 64 65 Respiratory Rate 18 Blood Pressure 152/80 H Pulse Oximetry 93 L 12/10/17 15:00 12/10/17 16:00 12/10/17 17:00 Temperature 97.6 F Pulse Rate 65 65 67 Respiratory Rate 18 Blood Pressure 135/77 Pulse Oximetry 98 12/10/17 18:00 12/10/17 19:00 12/10/17 20:00 Temperature 98.5 F Pulse Rate 60 70 56 L Respiratory Rate 16 Blood Pressure 148/88 H Pulse Oximetry 94 L 12/10/17 21:00 12/10/17 22:00 12/10/17 23:00 Temperature Pulse Rate 64 52 L 60 Respiratory Rate Blood Pressure Pulse Oximetry 12/11/17 00:00 12/11/17 01:00 12/11/17 02:00 Temperature 98.4 F Pulse Rate 53 L 54 L 50 L Respiratory Rate 16 Blood Pressure 161/78 H Pulse Oximetry 97 12/11/17 03:00 12/11/17 04:00 12/11/17 05:00 Temperature 97.9 F Pulse Rate 56 L 56 L 58 L Respiratory Rate 16 Blood Pressure 148/82 H Pulse Oximetry 95 12/11/17 06:00 12/11/17 07:00 12/11/17 08:00 Temperature 97.7 F Pulse Rate 55 L 56 L 56 L Respiratory Rate 16 Blood Pressure 170/91 H Pulse Oximetry 97 12/11/17 09:00 12/11/17 10:00 Temperature Pulse Rate 72 68 Respiratory Rate Blood Pressure Pulse Oximetry Intake & Output 12/10/17 12/11/17 12/11/17 18:59 06:59 18:59 Intake Total 640 / 640 480 / 480 Output Total 900 / 900 1900 / 1900 Balance -260 / -260 -1420 / -1420 Weight 104 kg Intake: IV 160 / 160 Heparin/D5W 25,000 U/250 mL 25, 160 / 160 000 unit In 250 ml @ Per Protocol 10 mls/hr IV.CONT TITRATE PRN Rx#:[id number] Oral 480 / 480 480 / 480 Output: Urine 900 / 900 1900 / 1900 Other: # Bowel Movements 1 Narrative: GENERAL: NAD SKIN: Warm and dry. HEAD: Normocephalic. EYES: No scleral icterus. No injection or drainage. NECK: Supple, trachea midline. No JVD or lymphadenopathy. CARDIOVASCULAR: Regular rate and rhythm without murmurs, gallops, or rubs. RESPIRATORY: Breath sounds equal bilaterally. No accessory muscle use. GASTROINTESTINAL: Abdomen soft, non-tender, nondistended. MUSCULOSKELETAL: No cyanosis, or edema. BACK: Nontender without obvious deformity. No CVA tenderness. Results Procedures completed during hospitalization: Clean left heart catheterization December 10, 2017 Labs on day of discharge: Labs from last 24 hours 12/11/17 12/11/17 04:48 04:28 WBC 8.8 RBC 4.22 Hgb 11.0 L Hct 33.7 L MCV 79.8 L MCH 26.1 L MCHC 32.7 RDW 19.6 H Plt Count 231 MPV 8.3 Stool H. pylori Ag Pending - Impressions ITS Impressions Liver Ultrasound 12/09/17 00:00 CONCLUSION: The liver is slightly echogenic which may be due to fatty infiltration and or hepatocellular dysfunction. Discharge Plan - Discharge Disposition Patient Disposition: Discharge Home - Discharge Condition Condition: Fair - Discharge Order Discharge Orders: Discharge Order (Routine); Ordered 12/11/17 Ordered By: Jorge Boone - Physicians Team Primary Care Provider: UNKNOWN, Attending Provider: Jorge Boone Other Providers: Steve Spencer MD ; Vu Ahumada MD - Rxs /Orders / Referrals /Forms Prescriptions: New amlodipine [Norvasc] 5 mg Tablet 5 mg PO DAILY Qty: 30 RF: 0 aspirin 81 mg Tablet,Delayed Release (Dr/Ec) 162 mg PO DAILY Qty: 30 RF: 0 atorvastatin 20 mg Tablet 20 mg PO HS Qty: 30 RF: 0 carvedilol [Coreg] 3.125 mg Tablet 3.125 mg PO BID Qty: 60 RF: 3 spironolactone [Aldactone] 25 mg Tablet 25 mg PO BID@0900,1800 Qty: 60 RF: 0 Continue ferrous sulfate [iron] 325 mg (65 mg iron) Tablet 325 mg PO DAILY levothyroxine [Synthroid] 25 mcg Tablet 25 mcg PO DAILY lisinopril 20 mg Tablet 20 mg PO DAILY montelukast [Singulair] 10 mg Tablet 10 mg PO QPM omeprazole magnesium [Prilosec OTC] 20 mg Tablet,Delayed Release (Dr/Ec) 20 mg PO DAILY umeclidinium-vilanterol [Anoro Ellipta] 62.5-25 mcg/actuation Blister With Device 1 inh INHALATION Q24H Referrals: Parent Coach [Outside] - See Instructions UNKNOWN, [Primary Care Provider] - See Instructions
[2017-12-11] MEDS ORDERED: Iohexol 350 MG/ML 100 ML Vial (for Cath Lab) IVCONTRAST ONE (13:25)
[2017-12-11 13:37] VITALS: BP 168/96; PULSE 67; TEMP 98.1
--- NOTE | 2018-02-04 11:50 | CATHPROC ---
[facility] HIS Report Study Information Study Number Admission Scheduled Start Study Start [id number] Dec 09 2017 2:01AM 12/10/2017 Dec 10 2017 8:41AM [place] [facility] Electrophysiology Study Admit Source Facility Department Emergency department [facility] - Laboratory Tester Physician and Clinical Staff Initial Steve Amado Marketing AdminHailey Hale RN Circulator Ferlitto, Joey, RN Other cathlab, cathlab Recorder Adelfo Zhu RCIS(BS) Scrub Luis Alberto BrunoRT(R) Procedures Performed Procedure Location (Site) Vessel Name Coronary Angiograms LCA Left Coronary Coronary Angiograms RCA Right Coronary LV Gram-hand inj. LV LV Ventricle Equipment Time Leather Dresser Description Size Mfg Part Number Used/Scraped TRANSDUCER, TRUWAVE [id number] 08:41 [employer] GARVEY * Used W/STOCKCOCK *[id number] [id number] *[id number] *[id number] 08:41 [email or web address] BLANKET,WARM AIR CCL * Used *[id number] 08:41 [email or web address] PACK, CCL CUSTOM * Used *[id number] 08:41 [employer] PACER PEN, SKIN DUAL W/ RULER * Used *[id number] 08:41 [employer] WIRE, 3MMJ .035 180CM 180CM Used *[id number] 08:41 NAMIC MANIFOLD, 4 PORT * Used *[id number] 08:41 [employer] OMNIPAQUE, 350 MG, 150ML 150ML [id number] Used [id number] 08:41 [employer] SHEATH, FR4 TERUMO (10CM) FR 4 Used *[id number] History: Current Medications Medication Dosage/Unit Route Frequency Last Date/Time Taken LISINOPRIL CLONIDINE History: Risk Factors Family History of Hypertension Dyslipidemia Previous MA Previous Heart Failure Premature CAD Yes Yes Yes No No Prior Valve Prior PCI Prior CABG Surgery No No No Cerebrovascular Peripheral Artery Chronic Lung On Dialysis Diabetes Disease Disease Disease No No No No No History: Symptoms/Diagnosis Selection Items Chest pain History: Stress Tests Stress or Imaging Studies Performed No History: Other Current Smoker Method Packs a Day Years Used Pack Years Yes Cigarettes 1 43 43 Labs Hgb (g/dl) Hct (%) RBC (MIL/MM3) Platelets (thousands) 11.60-17.00 35.00-51.00 4.00-5.90 150.00-450.00 11.1 33.4 4.2 228 Glucose (mg/dl) BUN (mg/dl) Creatinine (mg/dl) BUN:Creatinine (1:x) 74.00-106.00 7.00-18.00 0.50-1.30 10.00-20.00 96 17 0.9 18.9 Na (meq/l) K (meq/l) 136.00-145.00 3.50-5.10 140 3.7 Troponin I (ng/ml) CPK (u/l) CPK-MB (ng/ML) 0.02-0.05 26.00-308.00 0.50-3.60 0.08 3.6 1.8 Medication Medication Total Dose (Bolus/Oral) Medication Total Dosage/Unit 1% XYLOCAINE 20 mL BENADRYL 50 mg FENTANYL 50 mcg LABETOLOL 20 mg NITRO OINTMENT 2 inches PEPCID 20 mg VERSED 2 mg ZOFRAN 4 mg Medications (Bolus/Oral) Medication Time Given Dosage/Unit Administered By Reason VERSED 12/10/2017 9:15:43 AM 1 mg Jeffrey Vu 1 mg VERSED given in lab by Jeffrey Vu RN in Right Wrist via Peripheral IV. Ordered by Steve Spencer. FENTANYL 12/10/2017 9:15:55 AM 25 mcg Jeffrey Vu 25 mcg FENTANYL given in lab by Jeffrey Vu RN in Right Wrist via Peripheral IV. Ordered by Steve Mosqueda. PEPCID 12/10/2017 9:16:11 AM 20 mg Jeffrey Vu 20 mg PEPCID given in lab by Jeffrey Vu RN in Right Wrist via Peripheral IV. Ordered by Steve Spencer. BENADRYL 12/10/2017 9:16:44 AM 50 mg Jeffrey Vu 50 mg BENADRYL given in lab by Jeffrey Vu RN in Right Wrist via Peripheral IV. Ordered by Steve Diaz. 1% XYLOCAINE 12/10/2017 9:17:35 AM 20 mL Jeffrey Vu 20 mL 1% XYLOCAINE given in lab by Jeffrey Vu RN in Right Groin via Subcutaneous. Ordered by Steve Power. ZOFRAN 12/10/2017 9:17:47 AM 4 mg Jeffrey Vu 4 mg ZOFRAN given in lab by Jeffrey Vu RN in Right Wrist via Central IV. Ordered by Pelon Spencer. NITRO OINTMENT 12/10/2017 9:18:36 AM 2 inches Jeffrey Vu 2 inches NITRO OINTMENT given in lab by Jeffrey Vu RN in Left shoulder via Peripheral IV. Ordere d by Steve Spencer. VERSED 12/10/2017 9:19:01 AM 1 mg Jeffrey Vu 1 mg VERSED given in lab by Jeffrey Vu RN in Right Wrist via Peripheral IV. Ordered by Steve Spencer. FENTANYL 12/10/2017 9:19:13 AM 25 mcg Jeffrey Vu 25 mcg FENTANYL given in lab by Jeffrey Vu RN in Right Wrist via Peripheral IV. Ordered by Steve Mosqueda. LABETOLOL 12/10/2017 9:29:07 AM 20 mg Jeffrey Vu 20 mg LABETOLOL given in lab by Jeffrey Vu RN in Right Wrist via Peripheral IV. Ordered by Steve Mosqueda. Medication (Drip) Medication Time Given Dosage/Unit Concentration/Unit Diluent (ml) Solutio n IV Solutions 12/10/2017 8:41:16 AM 0 mL (IV) 500 NaCl .9 Patient arrived on IV Solutions in Right Antecubital via Peripheral IV. Pump/Drip Flow = 20 ml/hr usi ng NaCl .9. Initial Case Assessment Cardiovascular HR Rhythm NIBP Chest Pain 80 nsr 203/102 0 Edema Present Skin color Skin None Normal Warm Dry Circulatory - Right Pulses Dorsalis Pedis Femoral 1 1 Scale (0,1,2,3,4,d) Circulatory - Left Pulses Dorsalis Pedis Femoral 1 1 Scale (0,1,2,3,4,d) Neurological State Oriented to time-place- Alert Moves all extremities person Respiration - General Respiration Rate SpO2 (%) (B/min) 15 95 Final Case Assessment Cardiovascular HR Rhythm NIBP Chest Pain 66 nsr 178/96 0 Edema Present Skin color Skin None Normal Warm Dry Circulatory - Right Pulses Dorsalis Pedis Femoral 1 1 Scale (0,1,2,3,4,d) Circulatory - Left Pulses Dorsalis Pedis Femoral 1 1 Scale (0,1,2,3,4,d) Neurological State Oriented to time-place- Alert Moves all extremities person Respiration - General Respiration Rate SpO2 (%) (B/min) 15 95 Chronological Log Time Study Chronological Log 8:40:56 Patient arrived via Bed. Heparin drip DCed per MD. 8:40:56 Patient Name, D.O.B, / Armband Verified By R.N. 8:40:57 Consent signed by the physician and the patient and verified by the Laboratory Tester staff. 8:40:57 Pre-op and post- op instructions given; patient acknowledges understanding of instructions. 8:40:59 Presedation assessment performed by Laboratory Tester RN. 8:40:59 Immediate Presedation assesment performed by physician. 8:41:00 Skin Breakdown- 8:41:00 Patient has been NPO for More than 6Hrs. 8:41:13 Patient Warmer Placed on the Table. 8:41:14 [place] Prominences Protected 8:41:15 A # 20 IV was noted in the Antecubital (right). Grade = 0 8:41:15 A # 20 IV was noted in the Wrist (right). Grade = 0 8:41:16 Patient arrived on IV Solutions in Right Antecubital via Peripheral IV. Pump/Drip Flow = 20 ml/hr using NaCl .9. 8:41:16 History and physical on the chart or being dictated. Vitals capture started with the following parameters, Patient=Adult, Interval=5 min, Initial Pr yfpeop=602 mmHg, 8:51:43 Deflation Rate=5 mmHg, Cuff placed on Left Arm 8:53:15 Reference ECG taken 8:53:17 HR=75 bpm, MYYJ=032/107 mmhg, FvL9=451 %, Resp=18 B/min, Pain=1, Ed=10, Kennedy=2 8:53:33 Bilateral groins prepped with 2% chlorhexidine, and draped after a 3 minute waiting time. 8:56:11 MD paged 8:56:16 MD responded 8:57:37 HR=69 bpm, EDVU=101/102 mmhg, SpO2=98.0 %, Resp=13 B/min, Pain=1, Ed=10, Kennedy=2 Assessment: Initial Case, HR=80 BPM, Rhythm=nsr, QNLJ=997/102 mmhg, Chest Pain=0, Edema=None, Color=Normal, Skin = Warm, Dry Right Pulses: Godwin Ped=1, Femoral=1 8:59:00 Left Pulses: Godwin Ped=1, Femoral=1 Neurological: State=Alert, Ox3, LEE Respiration: Resp=15 B/min, SpO2=95 % 8:59:37 Pressure channel 1 zeroed. 9:02:38 HR=71 bpm, JEYA=349/102 mmhg, SpO2=96.0 %, Resp=20 B/min, Pain=1, Ed=10, Kennedy=2 9:07:37 HR=80 bpm, MERL=789/106 mmhg, SpO2=96.0 %, Resp=13 B/min, Pain=1, Ed=10, Kennedy=2 9:12:56 MD arrived. 9:12:59 Contrast Scanned 9:13:00 Immediate Presedation assesment performed by physician. 9:13:25 HR=71 bpm, HPHN=107/95 mmhg, SpO2=97.0 %, Resp=13 B/min, Pain=1, Ed=10, Kennedy=2 9:15:43 1 mg VERSED given in lab by Jeffrey Vu RN in Right Wrist via Peripheral IV. Ordered by Steve Spencer. 9:15:55 25 mcg FENTANYL given in lab by Jeffrey Vu RN in Right Wrist via Peripheral IV. Ordered by Steve Spencer. Time Out. Correct patient, correct procedure, correct physician, labs, allergies, and equipment verified with pipelines laborer 9:16:07 team present. Fire risk assesment completed (see hard stop sheet for coding). Time Out Concu rred by MD and individual staff in procedure. 9:16:11 20 mg PEPCID given in lab by Jeffrey Vu, DIMITRIOS in Right Wrist via Peripheral IV. Ordered by Steve Spencer. 9:16:44 50 mg BENADRYL given in lab by Jeffrey Vu, DIMITRIOS in Right Wrist via Peripheral IV. Ordered by Arthur. Tj 9:17:34 Case Start 9:17:35 20 mL 1% XYLOCAINE given in lab by Jeffrey Vu RN in Right Groin via Subcutaneous. Order ed by Steve Spencer. 9:17:41 HR=72 bpm, ZSKZ=549/99 mmhg, SpO2=96.0 %, Resp=15 B/min 9:17:47 4 mg ZOFRAN given in lab by Jeffrey Vu RN in Right Wrist via Central IV. Ordered by Steve Power. 9:18:20 Access site was Right Femoral Artery. 9:18:26 A SHEATH, FR4 TERUMO (10CM) FR 4 was advanced into the Fem Art (right) using the Percutaneou s technique. 2 inches NITRO OINTMENT given in lab by Jeffrey Vu RN in Left shoulder via Peripheral IV. O rdered by Tj 9:18:36 9:19:01 1 mg VERSED given in lab by Jeffrey Vu RN in Right Wrist via Peripheral IV. Ordered by Steve Spencer. 9:19:13 25 mcg FENTANYL given in lab by Jeffrey Vu RN in Right Wrist via Peripheral IV. Ordered by Steve Spencer. 9:19:17 Activated Clotting Time Drawn A JR 4.0 INFINITI CATHETER FR 4 was advanced over a wire. OMNIPAQUE, 350 MG, 150ML 150ML was use d for 9:19:20 injections. Recorded Pressure: LV, HR=68, Condition=Condition 1 9:20:05 (Left Ventricle) LV 208/11/16 9:20:14 The LV was manually injected with 10 cc's and visualized. OMNIPAQUE, 350 MG, 150ML 150ML use d. Recorded Pressure: LV, Ao, HR=75, Condition=Condition 1 9:20:25 (Left Ventricle) LV 209/13/13, (Aorta) Ao 206/90/139 Recorded Pressure: Ao, HR=79, Condition=Condition 1 9:21:10 (Aorta) Ao 207/95/139 9:21:59 The RCA was injected and visualized at various angles. OMNIPAQUE, 350 MG, 150ML 150ML used. 9:22:34 HR=64 bpm, QIJT=963/86 mmhg, SpO2=90 %, Resp=9 B/min, Pain=1, Ed=10, Kennedy=2 9:22:45 Catheter was removed A JL 4.0 INFINITI CATHETER FR 4 was advanced over a wire. OMNIPAQUE, 350 MG, 150ML 150ML was u sed for 9:22:46 injections. 9:23:59 ACT (Normal Range 90-180) = 151 9:24:04 The LCA was injected and visualized at various angles. OMNIPAQUE, 350 MG, 150ML 150ML use d. 9:26:18 Catheter was removed 9:26:49 Case End (Physician broke scrub) 9:27:33 HR=68 bpm, CDIV=887/96 mmhg, SpO2=93.0 %, Resp=10 B/min, Pain=1, Ed=10, Kennedy=2 Assessment: Final Case, HR=66 BPM, Rhythm=nsr, KSIU=040/96 mmhg, Chest Pain=0, Edema=None, Col or=Normal, Skin = Warm, Dry Right Pulses: Godwin Ped=1, Femoral=1 9:27:50 Left Pulses: Godwin Ped=1, Femoral=1 Neurological: State=Alert, Ox3, LEE Respiration: Resp=15 B/min, SpO2=95 % 9:29:07 20 mg LABETOLOL given in lab by Jeffrey Vu, RN in Right Wrist via Peripheral IV. Order ed by Steve Spencer. 9:32:28 HR=54 bpm, OAUP=010/81 mmhg, SpO2=96.0 %, Resp=27 B/min, Pain=1, Ed=10, Kennedy=2 9:32:53 Sheath removed; pressure applied to access site. 9:38:16 HR=52 bpm, XAEI=391/80 mmhg, SpO2=97.0 %, Resp=15 B/min, Pain=1, Ed=10, Kennedy=2 9:42:32 HR=52 bpm, TLYJ=791/82 mmhg, SpO2=98.0 %, Resp=14 B/min, Pain=1, Ed=10, Kennedy=2 9:47:13 Sterile dressing applied to site 9:47:22 Vitals capture stopped. End Study - Contrast Media Used In Study Contrast Total Opened (mL) Total Used (mL) Total Wasted (mL) Omnipaque 70 70 0 End Study - Maximum Contrast Load Max Contrast Load (mL) 576.0 End Study - Radiation Exposure Fluoro Time (minutes) 2.4 End Study - Sheaths Sheaths Pulled By Sheath Hold Time (min) Steve Spencer 15 End Study - Patient Disposition Complications Transferred To Interventional Outcome No Telemetry Bed No attempt made
== END 2017-12-11 13:26 | disposition home or self-care (01) ==
LOC: NEDDLT 19:26 → HCIS 12-09 02:01
PROVIDERS: ADMIT Hospitalist; ATTEND Hospitalist